=== PATIENT | female | born 1990 | race Caucasian/White ===

== ENCOUNTER 2016-11-26 11:21 | Emergency (ER) | payer OTHER ==
[~2016-11-26] VITALS: Wt 89.0 kg
[~2016-11-26 11:21] MED LIST: HYDR50CA PO; SERT100T PO; ZOLP5TAB PO
[2016-11-26] MEDS ORDERED: AMO500 PO (12:04)
[2016-11-26] MEDS ORDERED: IBUP-1542 PO (12:04)
--- NOTE | 2016-11-26 12:06 | ERD ---
ER Documentation Chief Complaint Date/Time DATE: 11/26/16 TIME: 12:05 Chief Complaint SORE THROAT X 2 DAYS HPI 26-year-old female presents with sore throat possibly fever and chills last 2 days. She denies cough, vomiting, abdominal pain, neck stiffness, rashes. ROS All systems reviewed and are negative except as per history of present illness. Medications Home Meds Active Scripts Ibuprofen* (Motrin*) 600 Mg Tab, 600 MG PO Q6, #15 TAB Prov:HASMUKH JONES MD 11/26/16 Amoxicillin* (Amoxicillin*) 500 Mg Cap, 500 MG PO TID for 10 Days, CAP Prov:HASMUKH JONES MD 11/26/16 Zolpidem Tartrate* (Ambien*) 5 Mg Tablet, 5 MG PO HS Y for INSOMNIA, #15 TAB Prov:SUMEET BOLANOS MD 07/15/16 Reported Medications Sertraline Hcl* (Zoloft*) 100 Mg Tablet, 150 MG PO DAILY, #30 TAB 07/15/16 Hydroxyzine Pamoate* (Vistaril*) 50 Mg Cap, 50 MG PO DAILY Y for PRN, CAP 07/15/16 Allergies Allergies: Coded Allergies: No Known Allergy (Unverified , 07/15/16) PMhx/Soc Hx Miscellaneous Medical Probl: Yes (depression ) Hx Alcohol Use: No Hx Substance Use: No Hx Tobacco Use: No Physical Exam Vitals Vital Signs Date Time Temp Pulse Resp B/P Pulse Ox O2 Delivery O2 Flow Rate FiO2 11/26/16 11:26 98.0 95 18 139/86 99 Physical Exam Const: [] Alert, [id number]. Head: Atraumatic Eyes: Normal Conjunctiva ENT: Normal External Ears, Nose and Mouth. Tonsils 3+ with erythema and slight exudate. Airways patent and uvula midline. Neck: Full range of motion..~ No meningismus. Resp: Clear to auscultation bilaterally Cardio: Regular rate and rhythm, no murmurs Abd: Soft, non tender, non distended. Normal bowel sounds Skin: No petechiae or rashes Back: No midline or flank tenderness Ext: No cyanosis, or edema Neur: Awake and alert Psych: Normal Mood and Affect Results 24 hrs Current Medications Medications (Trade) Dose Ordered Sig/Farzaneh Route PRN Reason Start Time Stop Time Status Last Admin Dose Admin Ibuprofen (Motrin) 600 mg ONCE ONCE PO 11/26/16 12:30 11/26/16 12:31 Procedures/MDM Patient presents with signs and symptoms of exudative pharyngitis and was treated with amoxicillin and ibuprofen. There is no evidence of abscess, airway obstruction, sepsis. The patient was stable with no new complaints during the ER course. Clinically, there is no current evidence to suggest meningitis, sepsis, acute abdomen, pneumonia, acute coronary syndrome, pulmonary embolism, or any other emergent condition appearing to require further evaluation or hospitalization. The patient should certainly return for any new or worsening symptoms per the aftercare instructions. They should otherwise follow-up with her primary care doctor for reevaluation this week. Departure Diagnosis: Primary Impression: Sore throat Condition: Stable Patient Instructions: Fever Control (Adult), Pharyngitis, Strep (Presumed) Additional Instructions: Recheck for new or worsening symptoms or primary care doctor. HASMUKH JONES MD Nov 26, 2016 12:06
[2016-11-26] MEDS ORDERED: IBUPROFEN 600 MG TAB PO ONE (12:30)
== END 2016-11-26 12:22 | disposition home or self-care (01) ==
LOC: FTE 11:21
DX: J02.9 Acute pharyngitis, unspecified (principal)
CPT/HCPCS: Z7502; Z7610; 99283